=== PATIENT | female | born 1955 | race Native Hawaiian/Other Pacific Islander ===

== ENCOUNTER 2017-09-06 09:31 | Outpatient (CLI) | payer BC ==
[~2017-09-06 09:31] MED LIST: AMLO5TAB PO; ASA LOW DOSE81 MG PO; B-12500 MCG PO; BENEFIBE2 PO; BIOTIN1000 MCG PO; CELLCEPT500 MG PO; MAG-OXIDE400 MG PO; MULTIVITAMI1 PO; NEXIUM40 M1 PO; OSCAL 500/1 TAB PO; PRED10TA27 PO; PROGRAF1 MG PO; SERT50TA PO
[2017-09-06 09:50] LABS: PLATELET COUNT 320 K/uL (152-353)
[2017-09-06 10:51] LABS: POTASSIUM 3.8 mmol/L (3.6-5.2); SODIUM 140 mmol/L (136-145)
== END 2017-09-06 19:29 | disposition home or self-care (01) ==
LOC: LABW 09:31
PROVIDERS: Internal Medicine Nephrology
DX: E13.9 Other specified diabetes mellitus without complications (principal); I10 Essential (primary) hypertension; Z94.0 Kidney transplant status
CPT/HCPCS: 36415; 80069; 80197; 81000; 82570; 83735; 84155; 84550; 85027

== ENCOUNTER 2017-12-31 20:16 | Emergency (ER) | payer BC ==
[~2017-12-31] VITALS: Ht 144.8 cm; Wt 60.3 kg
[2017-12-31 21:17] LABS: PLATELET COUNT 355 K/uL (152-353)
[2018-01-01 00:42] VITALS: BP 146/75; TEMP 98.8
== END 2018-01-01 00:52 | disposition home or self-care (01) ==
LOC: ED 20:16
DX: R10.84 Generalized abdominal pain (principal)
CPT/HCPCS: 36415; 80053; 81000; 85027; 96360; 99284

== ENCOUNTER 2018-03-20 09:03 | Outpatient (CLI) | payer BC ==
[2018-03-20 09:35] LABS: PLATELET COUNT 328 K/uL (152-353)
[2018-03-20 09:51] LABS: POTASSIUM 3.9 mmol/L (3.6-5.2)
== END 2018-03-20 20:15 | disposition home or self-care (01) ==
LOC: LABW 09:03
DX: E13.9 Other specified diabetes mellitus without complications (principal)
CPT/HCPCS: 36415; 80069; 81000; 82570; 84155; 85027

== ENCOUNTER 2018-06-12 09:47 | Outpatient (CLI) | payer BC ==
[2018-06-12 10:17] LABS: PLATELET COUNT 298 K/uL (152-353)
[2018-06-12 10:27] LABS: POTASSIUM 3.9 mmol/L (3.6-5.2)
== END 2018-06-12 19:54 | disposition home or self-care (01) ==
LOC: LABW 09:47
PROVIDERS: Internal Medicine Nephrology
DX: E13.9 Other specified diabetes mellitus without complications (principal); I97.3 Postprocedural hypertension; I10 Essential (primary) hypertension; Z94.0 Kidney transplant status
CPT/HCPCS: 36415; 80069; 80197; 81000; 82570; 84155; 85027

== ENCOUNTER 2020-05-05 09:32 | Outpatient (CLI) | payer OTHER, BC ==
[2020-05-05 10:05] LABS: PLATELET COUNT 282 K/uL (152-353)
== END 2020-05-05 19:13 | disposition home or self-care (01) ==
LOC: LABW 09:32
PROVIDERS: Internal Medicine Nephrology
DX: Z94.0 Kidney transplant status (principal); I10 Essential (primary) hypertension; I97.3 Postprocedural hypertension; E13.9 Other specified diabetes mellitus without complications
CPT/HCPCS: 36415; 80069; 81000; 82306; 82570; 83735; 83970; 84155; 84550; 85027

== ENCOUNTER 2020-08-05 09:47 | Outpatient (CLI) | payer OTHER, BC ==
[2020-08-05 10:27] LABS: PLATELET COUNT 340 K/uL (152-353)
[2020-08-05 10:30] LABS: POTASSIUM 4.1 mmol/L (3.6-5.2)
== END 2020-08-05 19:11 | disposition home or self-care (01) ==
LOC: LABW 09:47
PROVIDERS: ATTEND Internal Medicine Nephrology
DX: I10 Essential (primary) hypertension (principal); E13.9 Other specified diabetes mellitus without complications; Z94.0 Kidney transplant status
CPT/HCPCS: 36415; 80069; 80197; 81000; 82306; 82570; 83735; 83970; 84155; 84550; 85027

== ENCOUNTER 2020-11-08 07:18 | Emergency (ER) | payer OTHER, BC ==
[~2020-11-08] VITALS: Ht 142.2 cm; Wt 59.0 kg
[2020-11-08 07:33] VITALS: TEMP 97.4
[2020-11-08 08:48] LABS: PLATELET COUNT 363 K/uL (152-353)
[2020-11-08 08:52] LABS: POTASSIUM 3.9 mmol/L (3.6-5.2)
[2020-11-08 09:39] VITALS: BP 156/78
== END 2020-11-08 10:02 | disposition still patient (30) ==
LOC: ED 07:18
PROVIDERS: Family Medicine
DX: K35.890 Other acute appendicitis without perforation or gangrene (principal); K52.89 Other specified noninfective gastroenteritis and colitis; R10.31 Right lower quadrant pain; Z03.818 Encounter for observation for suspected exposure to other biological agents ruled out
CPT/HCPCS: 36415; 80053; 81000; 82150; 83690; 85027; 87635; 96360; 96361; 96365; 96375; 99284; J0696; J2405; U0003

== ENCOUNTER 2021-02-03 09:44 | Outpatient (CLI) | payer OTHER, BC ==
[2021-02-03 10:55] LABS: PLATELET COUNT 351 K/uL (152-353)
== END 2021-02-03 22:05 | disposition home or self-care (01) ==
LOC: LABW 09:44
PROVIDERS: ATTEND Internal Medicine Nephrology
DX: Z94.0 Kidney transplant status (principal); E13.9 Other specified diabetes mellitus without complications; I97.3 Postprocedural hypertension; I10 Essential (primary) hypertension
CPT/HCPCS: 36415; 80069; 80197; 81000; 82306; 82570; 83735; 83970; 84155; 84550; 85027

== ENCOUNTER 2021-06-09 09:48 | Outpatient (CLI) | payer OTHER, BC ==
[2021-06-09 10:21] LABS: PLATELET COUNT 307 K/uL (152-353)
[2021-06-09 10:29] LABS: POTASSIUM 3.9 mmol/L (3.6-5.2)
== END 2021-06-09 19:10 | disposition home or self-care (01) ==
LOC: LABW 09:48
PROVIDERS: ATTEND Internal Medicine Nephrology
DX: I10 Essential (primary) hypertension (principal); Z94.0 Kidney transplant status; I97.3 Postprocedural hypertension; E13.9 Other specified diabetes mellitus without complications
CPT/HCPCS: 36415; 80069; 80197; 81000; 82306; 82570; 83735; 83970; 84155; 84550; 85027

== ENCOUNTER 2021-08-27 11:45 | Emergency (ER) | payer OTHER, BC ==
[~2021-08-27] VITALS: Ht 142.2 cm; Wt 56.7 kg
[2021-08-27 12:18] LABS: PLATELET COUNT 275 K/uL (152-353)
[2021-08-27 13:37] LABS: PARTIAL THROMBOPLASTIN TIME 23.4 SECONDS (24.5-33.6)
[2021-08-27 14:50] VITALS: BP 117/61; TEMP 97.8
== END 2021-08-27 14:50 | disposition short-term general hospital (02) ==
LOC: ED 11:45
PROVIDERS: Emergency Medicine
DX: I21.4 Non-ST elevation (NSTEMI) myocardial infarction (principal); Z94.0 Kidney transplant status; R73.9 Hyperglycemia, unspecified; Z11.52 Encounter for screening for COVID-19
CPT/HCPCS: 36415; 80048; 84484; 85027; 85379; 85610; 85730; 87635; 93005; 96365; 96374; 99284; J1644; U0003

== ENCOUNTER 2021-10-14 09:01 | Outpatient (CLI) | payer OTHER, BC ==
[2021-10-14 09:25] LABS: PLATELET COUNT 298 K/uL (152-353)
[2021-10-14 09:37] LABS: POTASSIUM 4.3 mmol/L (3.6-5.2)
== END 2021-10-14 19:35 | disposition home or self-care (01) ==
LOC: LABW 09:01
PROVIDERS: ATTEND Internal Medicine Nephrology
DX: I97.3 Postprocedural hypertension (principal); Z94.0 Kidney transplant status; E13.9 Other specified diabetes mellitus without complications; N18.31 Chronic kidney disease, stage 3a; E83.42 Hypomagnesemia; I12.9 Hypertensive chronic kidney disease with stage 1 through stage 4 chronic kidney disease, or unspecified chronic kidney disease
CPT/HCPCS: 36415; 80069; 80197; 81000; 82306; 83036; 83735; 83970; 84155; 84550; 85027

== ENCOUNTER 2022-03-30 09:44 | Outpatient (CLI) | payer OTHER, BC ==
[2022-03-30 10:24] LABS: POTASSIUM 4.3 mmol/L (3.6-5.2)
[2022-03-30 10:30] LABS: PLATELET COUNT 296 K/uL (152-353)
== END 2022-03-30 18:53 | disposition home or self-care (01) ==
LOC: LABW 09:44
PROVIDERS: ATTEND Internal Medicine Nephrology
DX: I10 Essential (primary) hypertension (principal); Z94.0 Kidney transplant status; E11.9 Type 2 diabetes mellitus without complications; N26.9 Renal sclerosis, unspecified; N18.1 Chronic kidney disease, stage 1
CPT/HCPCS: 36415; 80069; 80197; 81002; 82306; 83036; 83735; 83970; 84156; 84550; 85027

== ENCOUNTER 2022-08-11 08:55 | Outpatient (CLI) | payer OTHER, BC ==
[2022-08-11 09:15] LABS: PLATELET COUNT 386 K/uL (152-353)
== END 2022-08-11 19:35 | disposition home or self-care (01) ==
LOC: LABW 08:55
PROVIDERS: ATTEND Internal Medicine Nephrology
DX: I97.3 Postprocedural hypertension (principal); Z94.0 Kidney transplant status; I10 Essential (primary) hypertension; E83.42 Hypomagnesemia; E11.9 Type 2 diabetes mellitus without complications; N26.9 Renal sclerosis, unspecified
CPT/HCPCS: 36415; 80069; 80197; 81002; 82306; 83036; 83735; 83970; 84155; 84156; 84550; 85027

== ENCOUNTER → 2022-12-09 | Outpatient (CLI) | payer OTHER, BC | LOC: RAD 14:26 | PROVIDERS: ATTEND Physician Assistant | DX: R07.89 Other chest pain (principal); M54.89 Other dorsalgia ==

== ENCOUNTER 2023-01-06 08:43 | Outpatient (CLI) | payer OTHER, BC ==
[2023-01-06 09:12] LABS: PLATELET COUNT 304 K/uL (152-353)
[2023-01-06 09:31] LABS: POTASSIUM 4.2 mmol/L (3.6-5.2)
== END 2023-01-06 17:00 | disposition home or self-care (01) ==
LOC: LABW 08:43
PROVIDERS: ATTEND Internal Medicine Nephrology
DX: I12.9 Hypertensive chronic kidney disease with stage 1 through stage 4 chronic kidney disease, or unspecified chronic kidney disease (principal); N18.1 Chronic kidney disease, stage 1; E11.9 Type 2 diabetes mellitus without complications; Z94.0 Kidney transplant status; I97.3 Postprocedural hypertension; E55.9 Vitamin D deficiency, unspecified
CPT/HCPCS: 36415; 80069; 80197; 81002; 82306; 83036; 83735; 83970; 84156; 84550; 85027

== ENCOUNTER 2023-04-12 10:01 | Outpatient (CLI) | payer OTHER, BC | END 2023-04-12 20:21 | disposition home or self-care (01) | LOC: LABW 10:01 | PROVIDERS: ATTEND Nurse Practitioner | DX: I10 Essential (primary) hypertension (principal); E78.49 Other hyperlipidemia | CPT/HCPCS: 36415; 80061; 80076 ==

== ENCOUNTER 2023-05-06 09:18 | Outpatient (CLI) | payer OTHER, BC ==
[2023-05-06 10:24] LABS: PLATELET COUNT 292 K/uL (152-353)
[2023-05-06 10:35] LABS: POTASSIUM 3.8 mmol/L (3.6-5.2)
== END 2023-05-06 18:58 | disposition home or self-care (01) ==
LOC: LABW 09:18
PROVIDERS: ATTEND Internal Medicine Nephrology
DX: I97.3 Postprocedural hypertension (principal); Z94.0 Kidney transplant status; I10 Essential (primary) hypertension; K21.9 Gastro-esophageal reflux disease without esophagitis; E11.9 Type 2 diabetes mellitus without complications; E55.9 Vitamin D deficiency, unspecified
CPT/HCPCS: 36415; 80069; 81002; 82306; 83036; 83735; 83970; 84155; 84156; 84550; 85027